=== PATIENT | male | born 1985 | race Caucasian/White ===

== ENCOUNTER 2019-11-24 08:37 | Emergency (ER) | payer BC, SELFPAY ==
[2019-11-24 08:56] VITALS: BP 119/67; PULSE 70; RESP 16; TEMP 37; O2SAT 100
--- NOTE | 2019-11-24 09:13 | ED.SKABFB ---
HPI - Skin/Abscess/Foreign Bdy General Chief complaint: Skin/Abscess/Foreign Body Stated complaint: RASH Time Seen by Provider: 11/24/19 09:08 Source: patient and RN notes reviewed Mode of arrival: ambulatory Limitations: no limitations History of Present Illness HPI narrative: Patient presents today complaining of a 3-day history of a rash to the back of the neck. He noted it after he got a haircut. States he presented today primarily because he believes he has a swollen lymph node to the left side of his neck. Denies pain in the lymph node or the rash. Denies much itching. He has not tried any [id number] treatment prior to arrival. MD complaint: rash Related Data Allergies Allergy/AdvReac Type Severity Reaction Status Date / Time No Known Allergies Allergy Verified 03/02/15 16:48 Review of Systems Review of Systems: Narrative: CONSTITUTIONAL: Denies body aches, fever, chills, or sweats. EYES: Denies visual changes, redness, or discharge. ENT: Denies rhinorrhea, congestion, sore throat, or otalgia.+ Swollen lymph noted neck CARDIOVASCULAR: Denies chest pain, palpitations, or edema. RESPIRATORY: Denies cough or dyspnea. GASTROINTESTINAL: Denies abdominal pain, nausea, vomiting, or diarrhea. GENITOURINARY: Denies dysuria or hematuria. SKIN: Denies itching, or wounds.+ Rash to posterior neck MUSCULOSKELETAL: Denies back pain, joint pain, or myalgia. NEUROLOGIC: Denies headache, numbness, tingling, or weakness. PSYCH: Denies depression or anxiety. PMFSH Social History Social History Gender identity (if verbalized by the patient): Male Comments At time of signature, I have reviewed and agree with nursing past medical, surgical, social and family history unless otherwise noted. Please see nursing chart for further information. There is no relevant family history pertinent to the presenting complaint Exam Narrative: Exam Narrative: GENERAL: Well-appearing, well-nourished, and in no acute distress. HEAD: Normocephalic, atraumatic. EYES: EOMI. No redness or drainage. Conjunctivae normal. ENT: Mucous membranes pink and moist. NECK: Normal AROM. Supple. 1 mildly swollen lymph node in the left posterior cervical chain. CHEST: No respiratory distress. Clear to auscultation. HEART: Regular rate and rhythm. No murmur appreciated. Normal peripheral pulses. ABDOMEN: Soft, nontender, nondistended, normal active bowel sounds. MUSCULOSKELETAL: No bony tenderness. EXTREMITIES: Normal range of motion. No edema. SKIN: Warm, dry. Capillary refill normal. Normal skin turgor. 2cm area of erythema that is slightly raised to the midline posterior neck. Tiny pustules in the center. No fluctuance. Patient also has a few scattered pustules and up into the hairline. There is a small amount of honey crusting over the rash. NEURO: No focal deficits. Alert and oriented x3. Gait steady. PSYCH: Normal affect. No signs of depression or anxiety. Course Vital Signs Vital signs: Vital Signs Temperature 98.6 F 11/24/19 08:56 Pulse Rate 70 11/24/19 08:56 Respiratory Rate 16 11/24/19 08:56 Blood Pressure 119/67 11/24/19 08:56 Pulse Oximetry 100 11/24/19 08:56 Temperature 98.6 F 11/24/19 08:56 Pulse Rate 70 11/24/19 08:56 Respiratory Rate 16 11/24/19 08:56 Blood Pressure 119/67 11/24/19 08:56 Pulse Oximetry 100 11/24/19 08:56 Reviewed MDM - Skin/Abscess/Foreign Bdy Differential Diagnosis Differential diagnosis: Likely abscess of skin or subcutaneous tissue, urticaria, cellulitis, eczema, insect bites, impetigo and contact dermatitis Critical Care Time Critical Care Time Critical Care Time: No Discharge Plan Discharge Clinical Impression: Impetigo Patient Disposition: Home, Self-Care Condition: Stable Instructions: Impetigo (DC) Additional Instructions: Please use the mupirocin ointment as directed. You may also want to purchase some hydrocortisone, mixed with the mupiroc
== END 2019-11-24 09:20 | disposition home or self-care (01) ==
PROVIDERS: Emergency Provider Nurse Practitioner
DX: L01.00 Impetigo, unspecified (principal)
CPT/HCPCS: 99213; G0463

== ENCOUNTER 2019-12-05 13:53 | Emergency (ER) | payer BC, SELFPAY ==
[2019-12-05 14:41] VITALS: BP 123/75; PULSE 67; RESP 18; TEMP 36.8; O2SAT 98
--- NOTE | 2019-12-05 14:51 | ED.SKABFB ---
HPI - Skin/Abscess/Foreign Bdy General Chief complaint: Skin/Abscess/Foreign Body Stated complaint: rash Time Seen by Provider: 12/05/19 14:40 Source: patient Mode of arrival: ambulatory Limitations: no limitations History of Present Illness HPI narrative: Vin Gonzalez is a 34 yo male with no PMH who was seen here a week ago and diagnosed with impetigo; has improved but has not resolved and is spread to left neck and up into hairline. He uses gym equipment but is in his own household Related Data Allergies Allergy/AdvReac Type Severity Reaction Status Date / Time No Known Allergies Allergy Verified 03/02/15 16:48 Review of Systems Review of Systems: Narrative: CONSTITUTIONAL: Denies fever, chills, sweats. EYES: Denies visual changes, redness, discharge. ENT: Denies rhinorrhea, congestion, sore throat, otalgia. CARDIOVASCULAR: Denies chest pain, palpitations, edema. RESPIRATORY: Denies dyspnea, wheezing, cough GASTROINTESTINAL: Denies abdominal pain, nausea, vomiting, diarrhea. GENITOURINARY: Denies dysuria, hematuria, abnormal discharge SKIN: Denies rash or itching. Has areas on left anterior neck posterior neck base of occipital lesion NEUROLOGIC: Denies numbness, or focal weakness. PSYCHIATRIC: Denies anxiety or depression. [facility] Family History Family History (Updated 12/05/19 @ 15:00 by Cherelle Cobb CNP) Other No active medical problems Social History Social History (Updated 12/05/19 @ 15:01 by Cherelle Cobb CNP) Smoking status: Current every day smoker Tobacco type: cigarettes Additional smoking assessment comments: knows needs to quit again is currently smoking 2 black in mild day Alcohol intake: current Gender identity (if verbalized by the patient): Male Comments At time of signature, I agree with nursing past medical, surgical, social and family history. There is no relevant family history pertinent to the presenting complaint. Exam Narrative: Exam Narrative: GENERAL: This is a well-nourished, well-developed patient, in mild distress. HEAD: normocephalic, atraumatic. EYES: Sclera clear/white. Vision is grossly intact. EARS: External ears normal, auditory canals clear and without drainage, TMs normal without perforation. Hearing grossly intact. NOSE: External nose normal without nasal discharge, nares without redness, no rhinorrhea. THROAT: Mucous membranes moist, bilateral enlarged lymph nodes that are minimally tender NECK: Neck supple, non-tender CARDIOVASCULAR: Regular rate and rhythm without murmurs, gallops, or rubs. RESPIRATORY: Clear to auscultation. Breath sounds equal bilaterally. No wheezes, rales, or rhonchi. GASTROINTESTINAL: Abdomen soft, non-tender, SKIN: warm, intact with lesion and base of occiput anterior left back and posterior hairline, NEURO: awake, alert, and oriented to person, place and time. There were no obvious focal neurologic abnormalities. Steady gait EXTREMITIES: Normal range of motion. BACK: Nontender without deformity Course Course Emergency Course: Renew mupirocin and add on Bactrim DS twice daily x10 days Follow-up with PCP Vital Signs Vital signs: Vital Signs Temperature 98.2 F 12/05/19 14:41 Pulse Rate 67 12/05/19 14:41 Respiratory Rate 18 12/05/19 14:41 Blood Pressure 123/75 12/05/19 14:41 Pulse Oximetry 98 12/05/19 14:41 Temperature 98.2 F 12/05/19 14:41 Pulse Rate 67 12/05/19 14:41 Respiratory Rate 18 12/05/19 14:41 Blood Pressure 123/75 12/05/19 14:41 Pulse Oximetry 98 12/05/19 14:41 MDM - Skin/Abscess/Foreign Bdy Differential Diagnosis Differential diagnosis: Likely abscess of skin or subcutaneous tissue, cellulitis, insect bites, impetigo, contact dermatitis and other Discharge Plan Discharge Clinical Impression: Impetigo Cellulitis Qualifiers: Site of cellulitis: neck Qualified Code(s): L03.221 - Cellulitis of neck Patient Disposition: Home, Self-Care Condition:
== END 2019-12-05 15:13 | disposition home or self-care (01) ==
PROVIDERS: Emergency Provider Nurse Practitioner
DX: L03.221 Cellulitis of neck (principal); L01.00 Impetigo, unspecified; F17.210 Nicotine dependence, cigarettes, uncomplicated
CPT/HCPCS: 99213; G0463

== ENCOUNTER 2024-03-19 12:22 | Outpatient (CLI) | payer BC, SELFPAY ==
--- NOTE | ~2024-03-19 | US_ITS ---
EXAMINATION: US scrotum doppler DATE: 03/19/2024 13:11 INDICATION: Testicular pain TECHNIQUE: Sonographic evaluation of the scrotum was performed assessing grayscale appearance and col or Doppler flow. Spectral Doppler evaluation was also performed. COMPARISON: None. FINDINGS: RIGHT TESTICLE: The right testicle measures 6 x 2.5 x 3.6 cm. Arterial and venous flow are present. Trace right-sided hydrocele is present. RIGHT EPIDIDYMIS: The right epididymis measures 7.4 mm. Within the right epididymis is a well circumscribed anechoic avascular structure measuring 2.8 x 2.9 x 3.0 mm, consistent with a simple cyst for which no further follow-up is needed. Prominent vasculature with Valsalva. Pre-Valsalva measurement less than 3 mm. LEFT TESTICLE: The left testicle measures 6.6 x 2.9 x 3.4 cm. Arterial and venous flow are demonstrated. Trace left-sided hydrocele is present. LEFT EPIDIDYMIS: The left epididymis measures 10 mm. Prominent vasculature with Valsalva. Pre-Valsalva measurement less than 3 mm. IMPRESSION: Right epididymal head simple cyst measuring 3 mm in greatest dimension. Trace hydrocele detected bilaterally. Reviewed, dictated and finalized at location A.
== END 2024-03-19 12:23 | disposition home or self-care (01) ==
PROVIDERS: PCP Family Medicine; Visit Provider Nurse Practitioner
DX: N50.89 Other specified disorders of the male genital organs (principal); N50.3 Cyst of epididymis
CPT/HCPCS: 76870; 93976